=== PATIENT | female | born 1945 | race Caucasian/White ===

== ENCOUNTER → 2018-01-28 | Outpatient (CLI) | payer MEDICARE | LOC: LAB 16:42 | PROVIDERS: ATTEND Nurse Practitioner | DX: S41.102A Unspecified open wound of left upper arm, initial encounter (principal) | CPT/HCPCS: 87070; 87075; 87205 ==

== ENCOUNTER → 2018-11-30 | Outpatient (CLI) | payer MEDICARE, OTHER ==
--- NOTE | 2018-12-01 12:28 | Diagnostic Imaging Report ---
INDICATION: Routine screening. No prior mammograms are available for comparison. 2-D and 3-D bilateral screening mammography was performed with a Computer Aided Detection (CAD) system. FINDINGS: Scattered fibroglandular densities are identified bilaterally. Benign parenchymal and vascular calcifications are noted bilaterally. No mass or malignant appearing microcalcifications are seen. Axillae are unremarkable. IMPRESSION: No mammographic features suspicious for malignancy are identified. ACR BI-RADS Category 2: Benign findings. Result letter will be mailed to the patient. Note: At least 10% of breast cancer is not imaged by mammography. Dictated by: Dictated on workstation # [id number]
== END ==
LOC: RAD 14:46
PROVIDERS: ATTEND Physician Assistant
DX: Z12.31 Encounter for screening mammogram for malignant neoplasm of breast (principal)
CPT/HCPCS: 77067

== ENCOUNTER → 2021-11-29 | Outpatient (CLI) | payer MEDICARE, OTHER ==
--- NOTE | 2021-11-29 15:05 | Diagnostic Imaging Report ---
EXAMINATION: CT abdomen and pelvis without contrast. TECHNIQUE: Multiple contiguous axial images were obtained through the abdomen and pelvis without the use of intravenous contrast. All CT scans use one or more of the following dose optimizing techniques: Automated exposure control, MA and/or KvP adjustment based on patient size and exam type or iterative reconstruction. HISTORY: Abdominal pain, nausea and vomiting. COMPARISON: None available. FINDINGS: Limited views of the lower thorax show a 6 mm left lower lobe pulmonary nodule. Coronary arteries are severely calcified. The liver is normal without focal lesion. There is no biliary ductal dilation. Gallbladder is absent. Pancreas is normal. Spleen is normal. Adrenal glands are normal. Kidneys are atrophic. There are extensive vascular calcifications. There is no hydronephrosis. Bladder is decompressed and obscured by streak artifact. Small bowel is diffusely dilated. There is a relatively discrete transition in the mid ileum. No bowel wall thickening. No free fluid or air. No abdominal or pelvic lymphadenopathy. Aorta is normal in caliber without aneurysm. There are no suspicious osseous lesions. There has been a right hip arthroplasty and left femoral neck fixation. IMPRESSION: 1. Diffusely dilated small bowel with relatively discrete transition in the mid ileum. Findings favored to reflect a partial bowel obstruction. 2. Indeterminate left lower lobe pulmonary nodule measuring 6 mm. According to the Fleischner Society guidelines: In a low risk patient, no routine follow up is recommended. In a high risk patient, consider optional CT at 12 months. Dictated by: Dictated on workstation # [id number]
[2021-11-29 15:19] LABS: HEMATOCRIT 43 % (35-52); MEAN CORPUSCULAR HEMOGLOBIN 31 pg (25-34); MEAN CORPUSCULAR HGB CONC 33 g/dL (32-36); MEAN CORPUSCULAR VOLUME 95 fL (80-99); MEAN PLATELET VOLUME 9.5 fL (9.0-12.2); PLATELET COUNT 235 10^3/uL (130-400); WHITE BLOOD COUNT 13.8 10^3/uL (4.3-11.0)
[2021-11-29 15:33] LABS: ALBUMIN 4.1 GM/DL (3.2-4.5); BILIRUBIN,TOTAL 0.9 MG/DL (0.1-1.0); CALCIUM 9.2 MG/DL (8.5-10.1); CREATININE SERUM 6.12 MG/DL (0.60-1.30); POTASSIUM 4.3 MMOL/L (3.6-5.0); TOTAL PROTEIN 8.1 GM/DL (6.4-8.2)
== END ==
LOC: RAD 14:30
PROVIDERS: ATTEND Nurse Practitioner Family
DX: R91.1 Solitary pulmonary nodule (principal); R10.9 Unspecified abdominal pain; R11.2 Nausea with vomiting, unspecified
CPT/HCPCS: 36415; 74176; 80053; 85027

== ENCOUNTER → 2022-01-07 | Outpatient (CLI) | payer MEDICARE, OTHER ==
[2022-01-07 12:26] LABS: HEMATOCRIT 36 % (35-52); HEMOGLOBIN 11.2 g/dL (11.5-16.0); MEAN CORPUSCULAR HEMOGLOBIN 30 pg (25-34); MEAN CORPUSCULAR HGB CONC 32 g/dL (32-36); MEAN CORPUSCULAR VOLUME 94 fL (80-99); MEAN PLATELET VOLUME 9.6 fL (9.0-12.2); PLATELET COUNT 312 10^3/uL (130-400)
--- NOTE | 2022-01-07 12:38 | Diagnostic Imaging Report ---
PROCEDURE: CT abdomen and pelvis without contrast. TECHNIQUE: Multiple contiguous axial images were obtained through the abdomen and pelvis without the use of intravenous contrast. Auto Exposure Controls were utilized during the CT exam to meet ALARA standards for radiation dose reduction. INDICATION: Right-sided abdominal pain. Patient prior colon surgery in November 2021. Comparison is made with prior CT from 11/29/2021. FINDINGS: Patient has developed some infiltrate in both bases. There also appears to be some trace pleural fluid on the right. There is development of some ascites. There is some fluid in the perihepatic and perisplenic region. There is also some free fluid in the right gutter as well as the pelvis. No well-formed fluid collection or abscess is seen at this time. There are some postoperative changes in the right lower quadrant. There are some mildly prominent small and large bowel loops but no definite focal transition is seen. There is some diverticulosis of the descending and sigmoid colon but no definite evidence of acute diverticulitis. Small bowel does not appear to be appreciably dilated. The bladder appears decompressed. Uterus contains numerous calcifications. Liver, pancreas, spleen, and adrenal glands are unremarkable. The kidneys are atrophic. There is some marked renal and mesenteric vasculature calcifications noted. Bony structures demonstrate postoperative changes to bilateral hips. IMPRESSION: 1. Development of some minimal bibasilar infiltrates or atelectasis and small right effusion. 2. There is some upper abdominal ascites as well as pelvic ascites. No well-formed fluid collection or abscess is seen at this time. There is no free air. 3. Uncomplicated diverticulosis. Dictated by: Dictated on workstation # [id number]
[2022-01-07 12:52] LABS: ALBUMIN 3.6 GM/DL (3.2-4.5); BILIRUBIN,TOTAL 0.8 MG/DL (0.1-1.0); CALCIUM 9.3 MG/DL (8.5-10.1); CREATININE SERUM 2.57 MG/DL (0.60-1.30); TOTAL PROTEIN 6.8 GM/DL (6.4-8.2)
== END ==
LOC: RAD 11:55
PROVIDERS: ATTEND Nurse Practitioner Family
DX: K57.30 Diverticulosis of large intestine without perforation or abscess without bleeding (principal); R18.8 Other ascites
CPT/HCPCS: 36415; 74176; 80053; 85027

== ENCOUNTER → 2022-01-16 | Outpatient (CLI) | payer MEDICARE, OTHER ==
--- NOTE | 2022-01-16 11:39 | Diagnostic Imaging Report ---
Indication: Pneumonia. Time of Exam: 10:56 AM No prior studies are available for comparison. Heart size is normal. Lungs are clear. No infiltrates are seen. There is no effusion or pneumothorax. There are postop changes to the left humerus. IMPRESSION: No acute cardiopulmonary process is detected. Dictated by: Dictated on workstation # [id number]
== END ==
LOC: RAD 10:43
PROVIDERS: ATTEND Nurse Practitioner Family
DX: J18.9 Pneumonia, unspecified organism (principal)
CPT/HCPCS: 71046

== ENCOUNTER → 2022-02-26 | Outpatient (CLI) | payer MEDICARE, OTHER ==
--- NOTE | 2022-02-26 11:06 | Diagnostic Imaging Report ---
INDICATION: Abdominal distention, ascites. Abdominal sonography performed in a routine fashion. The liver shows a coarse echo pattern which may indicate chronic hepatocellular disease. There is no focal liver lesion detected. Gallbladder is surgically absent. Common duct is not well seen due to overlying gas. Pancreas is unremarkable to the extent seen. The spleen was not enlarged measuring 10.8 cm in greatest diameter. Visualized portions of the aorta and IVC are normal. The right kidney shows cortical thinning. The right kidney measured 10.2 x 4.2 x 5.4 cm and showed no hydronephrosis. Left kidney also shows cortical thinning, but no hydronephrosis or focal lesion. There is no ascites at this time. IMPRESSION: Limited study. No ascites or discrete focal lesion. The liver shows a coarse echo pattern which may indicate chronic hepatocellular disease, correlate with clinical findings. Dictated by: Dictated on workstation # [id number]
== END ==
LOC: RAD 08:30
PROVIDERS: ATTEND Internal Medicine Gastroenterology
DX: R18.8 Other ascites (principal)
CPT/HCPCS: 76700

== ENCOUNTER 2022-11-01 12:32 | Emergency (ER) | payer MEDICARE, OTHER ==
[~2022-11-01] VITALS: Ht 162.6 cm; Wt 71.9 kg
[2022-11-01 12:35] VITALS: BP 181/81
[2022-11-01 13:41] LABS: BASOPHILS % (AUTO) 0 % (0-10); EOSINOPHILS # (AUTO) 0.2 10^3/uL (0.0-0.3); EOSINOPHILS % (AUTO) 3 % (0-10); HEMATOCRIT 35 % (35-52); HEMOGLOBIN 10.7 g/dL (11.5-16.0); LYMPHOCYTES # (AUTO) 0.7 10^3/uL (1.0-4.0); LYMPHOCYTES % (AUTO) 11 % (12-44); MEAN CORPUSCULAR HEMOGLOBIN 29 pg (25-34); MEAN CORPUSCULAR HGB CONC 31 g/dL (32-36); MEAN CORPUSCULAR VOLUME 94 fL (80-99); MONOCYTES # (AUTO) 0.5 10^3/uL (0.0-1.0); MONOCYTES % (AUTO) 9 % (0-12); NEUTROPHILS # (AUTO) 4.4 10^3/uL (1.8-7.8); NEUTROPHILS % (AUTO) 77 % (42-75); PLATELET COUNT 166 10^3/uL (130-400); WHITE BLOOD COUNT 5.8 10^3/uL (4.3-11.0)
[2022-11-01 13:49] LABS: INR 1.2 (0.8-1.4)
[2022-11-01 13:51] LABS: ALBUMIN 3.7 GM/DL (3.2-4.5); POTASSIUM 2.6 MMOL/L (3.6-5.0)
[2022-11-01 13:54] LABS: TOTAL PROTEIN 7.7 GM/DL (6.4-8.2)
[2022-11-01 13:55] LABS: BILIRUBIN,TOTAL 0.8 MG/DL (0.1-1.0)
[2022-11-01 13:57] LABS: CREATININE SERUM 2.22 MG/DL (0.60-1.30)
[2022-11-01] MEDS ORDERED: RT-ALBUTEROL/IPRATROPIUM 3 ML (DUONEB) VIAL INH ONE ×2 (14:15→18:45)
--- NOTE | 2022-11-01 14:19 | Diagnostic Imaging Report ---
CHEST 1 VIEW, AP/PA ONLY INDICATION: Chest pain. COMPARISON: 11/01/2022. FINDINGS: Stable small bilateral pleural effusions, larger on the right. Bilateral perihilar pulmonary opacities are similar. Stable cardiomegaly. No pneumothorax. IMPRESSION: 1. No change in small bilateral pleural effusions with probable mild edema. Dictated by: Dictated on workstation # [id number]
[2022-11-01] MEDS ORDERED: POTASSIUM CL 10MEQ/50ML IVPB 50 ML IV ONE (14:30)
--- NOTE | 2022-11-01 15:34 | ED General ---
General Chief Complaint: Cardiac/General Problems Stated Complaint: HEART ISSUES Nursing Triage Note: PT TO ROOM 04 VIA W/C FROM PCP FOR ABNORMAL EKG. PCP THINKS EKG SHOWS A BLOCKAGE. PT DENIES CHEST PAIN. PT REPORTS CHEST PRESSURE AND SOB X2-3 WEEKS AND IS BEING TREATED FOR PNEUMONIA X3 DAYS. PT HAD A CXR TODAY TO CONFIRM PNEUMONIA DX. Source of Information: Patient Exam Limitations: No Limitations History of Present Illness Date Seen by Provider: Nov 01, 2022 Time Seen by Provider: 13:24 Initial Comments This is 77-year-old woman presents to the emergency room accompanied by family with concerns about shortness of breath and pneumonia for which she has been treated for 3 days with azithromycin. She is a dialysis patient and had dialysis this morning. After dialysis she stopped at the hospital lab at the direction of her primary care office to receive blood work and an EKG. There was concern about a slight elevation in troponin and EKG findings. Outpatient labs and EKG were reviewed. Troponin was 0.058. EKG demonstrated atrial fibrillation. There is significant artifact limiting interpretation. There was no acute ischemic change identified by this provider. When labs were reviewed by the primary care office, patient was diverted to the emergency room. She has noted a cough and coarse respiratory sounds. She is also wheezing on exam. She is afebrile at this time. Oxygen saturation has dipped as low as 88% while patient is asleep. She has oxygen saturations as high as 100% on 2 L nasal cannula. On room air she ranges from 88% to 96% depending on her activity and wakefulness. Patient's primary care office is Dr. Kaur where she sees Pooja ELMORE. She receives nephrology and cardiology services at [facility]. Her semiconductor wafers saw operator is Dr. Winn and her finnish rubber is Dr. Morales. She receives Orencia infusions for rheumatoid arthritis. Her dialysis is Friday, Friday and Friday Allergies and Home Medications Allergies Coded Allergies: povidone-iodine (Verified Allergy, Mild, Rash, 11/01/22) pseudoephedrine (Verified Allergy, Mild, Rash, 11/01/22) hydrocodone (Verified Adverse Reaction, Unknown, Vomiting, 11/01/22) Patient Home Medication List Home Medication List Reviewed: Yes Albuterol Sulfate (Albuterol Sulfate) 2.5 Mg/3 Ml (0.083 %) Vial.neb, 2.5 MG INH Q4H PRN for WHEEZING Prescribed by: KELY BURCIAGA on 11/01/221703 Cefdinir (Cefdinir) 300 Mg Capsule, 300 MG PO UD Prescribed by: KELY BURCIAGA on 11/01/221703 Prednisone (Prednisone) 20 Mg Tab, 20 MG PO DAILY Prescribed by: KELY BURCIAGA on 11/01/221703 Review of Systems Review of Systems Constitutional: no symptoms reported EENTM: no symptoms reported Respiratory: see HPI Cardiovascular: see HPI Gastrointestinal: no symptoms reported Past Okhhzdg-Ylwuip-Wqlhcg Hx Patient Social History Tobacco Use?: No Smoking Status: Never a Smoker Smokeless Tobacco Frequency: Never a User Use of E-Cig and/or Vaping dev: No Use of E-Cig and/or Vaping Da: Never a User Substance use?: No Alcohol Use?: No Pt feels they are or have been: No Past Medical History Surgeries: Yes Gallbladder, Orthopedic (Plate fixation of upper extremity), Thyroidectomy Respiratory: Yes Pneumonia Cardiac: Yes Atrial Fibrillation, Peripheral Vascular Neurological: No : No Genitourinary: Yes Renal Failure Gastrointestinal: No Musculoskeletal: Yes Rheumatoid Arthritis Endocrine: Yes Diabetes, Insulin dep HEENT: No Cancer: No Psychosocial: No Integumentary: No Physical Exam Vital Signs Vital Signs - First Documented 11/01/22 11/01/22 12:35 14:19 Temp 36.1 Pulse 105 Resp 17 B/P (MAP) 181/81 (114) Pulse Ox 95 O2 Delivery Room Air O2 Flow Rate 2.00 Capillary Refill : Less Than 3 Seconds Height, Weight, BMI Height: '" Weight: lbs. oz. kg; 27.00 BMI Method: General Appearance: No Apparent Distress, WD/WN HEENT: PERRL/EOMI, Normal ENT Inspection Neck: Normal Inspection; No JVD Respiratory: No Accessory Muscle Use, No Respiratory Distress, Crackles, Rhonci, Wheezing Cardiovascular: No Murmur, Irregularly Irregular Gastrointestinal: Non Tender, Soft Extremity: Normal Inspection, Non Tender, Swelling (Trace or mild lower extremity edema) Neurologic/Psychiatric: Alert, Oriented x3, No Motor/Sensory Deficits, Normal Mood/Affect Skin: Normal Color, Warm/Dry Focused Exam Lactate Level 11/01/22 14:27: Lactic Acid Level 0.90 Lactic Acid Level Laboratory Tests Test 11/01/22 14:27 Lactic Acid Level 0.90 MMOL/L (0.50-2.00) Progress/Results/Core Measures Suspected Sepsis SIRS Temperature: Pulse: 105 Respiratory Rate: 17 Laboratory Tests 11/01/22 12:56: White Blood Count 5.8 Blood Pressure 181 /81 Mean: 114 11/01/22 14:27: Lactic Acid Level 0.90 Laboratory Tests 11/01/22 12:56: Creatinine 2.22H, INR Comment 1.2, Platelet Count 166, Total Bilirubin 0.8 Results/Orders Lab Results Laboratory Tests Test 11/01/22 11:05 11/01/22 12:56 11/01/22 14:27 Range/Units Influenza Type A (RT-PCR) Not Detected Not Detecte Influenza Type B (RT-PCR) Not Detected Not Detecte White Blood Count 5.8 4.3-11.0 10^3/uL Red Blood Count 3.67 L 3.80-5.11 10^6/uL Hemoglobin 10.7 L 11.5-16.0 g/dL Hematocrit 35 35-52 % Mean Corpuscular Volume 94 80-99 fL Mean Corpuscular Hemoglobin 29 25-34 pg Mean Corpuscular Hemoglobin Concent 31 L 32-36 g/dL Red Cell Distribution Width 13.9 10.0-14.5 % Platelet Count 166 130-400 10^3/uL Mean Platelet Volume 10.0 9.0-12.2 fL Immature Granulocyte % (Auto) 0 % Neutrophils (%) (Auto) 77 H 42-75 % Lymphocytes (%) (Auto) 11 L 12-44 % Monocytes (%) (Auto) 9 0-12 % Eosinophils (%) (Auto) 3 0-10 % Basophils (%) (Auto) 0 0-10 % Neutrophils # (Auto) 4.4 1.8-7.8 10^3/uL Lymphocytes # (Auto) 0.7 L 1.0-4.0 10^3/uL Monocytes # (Auto) 0.5 0.0-1.0 10^3/uL Eosinophils # (Auto) 0.2 0.0-0.3 10^3/uL Basophils # (Auto) 0.0 0.0-0.1 10^3/uL Immature Granulocyte # (Auto) 0.0 0.0-0.1 10^3/uL Prothrombin Time 16.0 H 12.2-14.7 SEC INR Comment 1.2 0.8-1.4 Activated Partial Thromboplast Time 42 H 24-35 SEC Sodium Level 143 135-145 MMOL/L Potassium Level 2.6 L 3.6-5.0 MMOL/L Chloride Level 97 L 98-107 MMOL/L Carbon Dioxide Level 32 21-32 MMOL/L Anion Gap 14 5-14 MMOL/L Blood Urea Nitrogen 9 7-18 MG/DL Creatinine 2.22 H 0.60-1.30 MG/DL Estimat Glomerular Filtration Rate 22 BUN/Creatinine Ratio 4 Glucose Level 134 H 70-105 MG/DL Calcium Level 9.0 8.5-10.1 MG/DL Corrected Calcium 9.2 8.5-10.1 MG/DL Magnesium Level 2.0 1.6-2.4 MG/DL Total Bilirubin 0.8 0.1-1.0 MG/DL Aspartate Amino Transf (AST/SGOT) 26 5-34 U/L Alanine Aminotransferase (ALT/SGPT) 16 0-55 U/L Alkaline Phosphatase 62 40-136 U/L Myoglobin 399.7 H 10.0-92.0 NG/ML Troponin I 0.044 H <0.028 NG/ML C-Reactive Protein High Sensitivity 4.79 H 0.00-0.50 MG/DL Total Protein 7.7 6.4-8.2 GM/DL Albumin 3.7 3.2-4.5 GM/DL Lactic Acid Level 0.90 0.50-2.00 MMOL/L Micro Results Microbiology 11/01/22 Blood Culture - Preliminary, Resulted No growth 11/01/22 Blood Culture - Preliminary, Resulted No growth My Orders Orders - KELY KENT MD Cbc With Automated Diff (11/01/22 13:24) Magnesium (11/01/22 13:24) Chest 1 View, Ap/Pa Only (11/01/22 13:24) Ekg Tracing (11/01/22 13:24) Comprehensive Metabolic Panel (11/01/22 13:24) Myoglobin Serum (11/01/22 13:24) Protime With Inr (11/01/22 13:24) Partial Thromboplastin Time (11/01/22 13:24) O2 (11/01/22 13:24) Monitor-Rhythm Ecg Trace Only (11/01/22 13:24) Ed Iv/Invasive Line Start (11/01/22 13:24) Troponin I [place] (11/01/22 13:24) Albuterol/Ipra Inhalation Soln (Duoneb I (11/01/22 14:15) Svn Small Volume Nebulizer (11/01/22 14:13) Potassium Cl 10meq/50ml Ivpb (Kcl 10 Meq (11/01/22 14:30) Hs C Reactive Protein (11/01/22 14:19) Blood Culture (11/01/22 14:19) Sputum Culture (11/01/22 14:19) Vital Signs Adult Sepsis Patie Q15M (11/01/22 14:19) Remove Rings In Anticipation O (11/01/22 14:19) Lactic Acid Analyzer (11/01/22 14:19) Influenza A And B By Pcr (11/01/22 15:05) Methylprednisolone Sod Succ (Solu-Medrol (11/01/22 15:45) Ceftriaxone 1 Gm Pre-Mix (Rocephin 1 Gm (11/01/22 15:57) Albuterol Inhaler (Albuterol) (11/01/22 17:01) Albuterol/Ipra Inhalation Soln (Duoneb I (11/01/22 18:45) Svn Small Volume Nebulizer (11/01/22 18:41) Medications Given in ED Vital Signs/I&O 11/01/22 11/01/22 11/01/22 12:35 12:35 14:19 Temp 36.1 Pulse 105 Resp 17 B/P (MAP) 181/81 (114) Pulse Ox 95 100 O2 Delivery Room Air Room Air Nasal Cannula O2 Flow Rate 2.00 Capillary Refill : Less Than 3 Seconds Blood Pressure Mean: 114 Progress Note #1: Progress Note Patient was seen and examined. Labs, EKG, and x-ray from outpatient visit were reviewed. They were repeated. Patient was noted to have significantly low potassium at 2.6. She was given 10 mEq by IV route. On x-ray she appears to have bilateral pleural effusions and some edema. Given her symptoms, she likely has some concurrent pneumonia and infiltrate. Oxygen saturations have been marginal. She has dipped as low as 88% at rest while asleep with good waveform. She has been on nasal cannula 2 L/min much of her stay. We will try to qualify her for home oxygen with RT testing. In the meantime she is receiving Rocephin for additional antibiotic therapy. DuoNeb treatment helped her with wheezing and improve her oxygen saturation. She will receive an inhaler to use at home. We will continue antibiotic therapy as well with a cefdinir prescription. Steroid therapy is also being initiated with Solu-Medrol in the ER and will be followed by prednisone at home. I discussed the situation with Dr. Khoury, semiconductor wafers saw operator on-call for Dr. Winn. She recommended not adding any more potassium supplementation as she is still in the timeframe of balancing the potassium between tissue and intravascular fluids. Repeat troponin was trending down at 0.44. Given no chest pain for a few days and a minimal troponin value that is trending downward in a dialysis patient, there is not appear to be clinical relevance to the troponin value. In discussion with Dr. Ventura, we determined it is reasonable to avoid hospital admission at this time and provide further care for pneumonia and hypoxia. We will attempt to get oxygen supplies at home. I can dispense a nebulizer machine for her as well. Progress Note #2: Time: 19:09 Progress Note After multiple attempts with multiple medical supply companies, I was not able to procure any oxygen for home delivery. Patient did have a recurrence of desaturation as low as 87% on room air with good waveform. However, patient did resuscitate her oxygen after nebulizer treatment. Oxygen saturations were in the mid to high 90s after the DuoNeb. She was reporting subjective improvement. Return precautions were given to the patient and her daughter. She was advised to return to the emergency room and possibly [facility] in [place] if she can safely do so if return to the hospital was necessary. ECG Initial ECG Impression Date: Nov 01, 2022 Initial ECG Impression Time: 12:43 Initial ECG Rate: 105 Initial ECG Rhythm: A Fib/Flutter Initial ECG Impression: Atrial Fibrillation Comment Atrial fibrillation with no acute ischemic ST changes. Probable LVH with secondary repolarization abnormality. No other abnormal intervals. Diagnostic Imaging Diagonstic Imaging: Xray Plain Films/CT/US/NM/MRI: chest Comments Chest x-ray viewed by me and report reviewed. See report below: NAME: [facility] REC#: [id number] PT STATUS: REG ER : 1945 PHYSICIAN: KELY KENT MD ADMIT DATE: 11/01/22/ER Signed Date of Exam:11/01/22 CHEST 1 VIEW, AP/PA ONLY CHEST 1 VIEW, AP/PA ONLY INDICATION: Chest pain. COMPARISON: 11/01/2022. FINDINGS: Stable small bilateral pleural effusions, larger on the right. Bilateral perihilar pulmonary opacities are similar. Stable cardiomegaly. No pneumothorax. IMPRESSION: 1. No change in small bilateral pleural effusions with probable mild edema. Dictated by: Dictated on workstation # [id number] Dict: 11/01/22 1412 Trans: 11/01/22 1612 [id number] Interpreted by: JASEN TA MD Electronically signed by: JASEN TA MD 11/01/22 1612 Departure Impression Primary Impression: Pneumonia Qualified Codes: J18.9 - Pneumonia, unspecified organism Additional Impressions: Hypoxia Pleural effusion Wheezing End stage renal failure on dialysis Atrial fibrillation Qualified Codes: I48.91 - Unspecified atrial fibrillation Disposition: 01 HOME, SELF-CARE Condition: Improved Departure-Patient Inst. Decision time for Depature: 17:02 Referrals: ANGELLA KAUR MD (PCP/Family) Primary Care Physician Patient Instructions: Pneumonia, Adult ED Add. Discharge Instructions: Complete azithromycin as previously prescribed. Add cefdinir 1 capsule after dialysis. This will continue the antibiotic initiated in your IV during her ER visit. Take your prednisone daily for the next 4 days to improve wheezing. Take early in the day to avoid sleep disturbance. Take with food or milk to avoid stomach upset. Monitor blood sugars closely while on prednisone. Use your insulin as previously directed if you have escalating blood sugars. If blood sugars become too high, stop prednisone and discuss further with your doctor on Friday. Monitor oxygen saturations. If you are having frequent or persistent desaturations below 92% consider returning to the ER. Follow-up with your finnish rubber as soon as possible. Return to the ER if your chest pain returns. Use your nebulizer machine every 4 hours as needed for wheezing or shortness of breath. You may alternatively use your inhaler up to 4 puffs in a 4-hour period of time. If you are requiring more frequent inhaled treatments than this, return to the ER. All discharge instructions reviewed with patient and/or family. Voiced understanding. Scripts Albuterol Sulfate (Albuterol Sulfate) 2.5 Mg/3 Ml (0.083 %) Vial.neb 2.5 MG INH Q4H PRN for WHEEZING, #50 EA 1 Refill Prov: KELY KENT MD 11/01/22 Prednisone (Prednisone) 20 Mg Tab 20 MG PO DAILY, #4 TAB 0 Refills Prov: KELY KENT MD 11/01/22 Cefdinir (Cefdinir) 300 Mg Capsule 300 MG PO UD, #3 CAP Friday, Friday and Friday after dialysis. Prov: KELY KENT MD 11/01/22 Copy Copies To 1: ANGELLA KAUR MD, JOSHUA T MD Nov 01, 2022 15:33
[2022-11-01] MEDS ORDERED: methylPREDNISolone 125 MG (Solu-MEDROL) VIAL IVP ONE (15:45)
[2022-11-01] MEDS ORDERED: cefTRIAXone 1 GM PRE-MIX 50 ML IV STA (15:57)
[2022-11-01] MEDS ORDERED: RT-ALBUTEROL HFA 8.5 GM INHALER IH STA (17:01)
[2022-11-01] MEDS ORDERED: PRD20T PO (17:04)
[2022-11-01] MEDS ORDERED: ALBU2.5V4 INH (17:04)
[2022-11-01] MEDS ORDERED: CEFD300C3 PO (17:04)
== END 2022-11-01 19:15 | disposition home or self-care (01) ==
LOC: EDUNIT# 12:32 → ER 12:34
DX: J18.9 Pneumonia, unspecified organism (principal); J90 Pleural effusion, not elsewhere classified; I48.91 Unspecified atrial fibrillation; E11.22 Type 2 diabetes mellitus with diabetic chronic kidney disease; N18.6 End stage renal disease; R09.02 Hypoxemia; E87.6 Hypokalemia; R60.0 Localized edema; Z99.2 Dependence on renal dialysis
CPT/HCPCS: 36415; 71045; 80053; 83605; 83735; 83874; 84484; 85025; 85610; 85730; 86141; 87040; 93005; 93041; 94640

== ENCOUNTER → 2022-11-01 | Outpatient (CLI) | payer MEDICARE, OTHER ==
[~2022-11-01] MED LIST: ALBU2.5V4 INH; CEFD300C3 PO; PRD20T PO
[2022-11-01 11:30] LABS: BASOPHILS % (AUTO) 0 % (0-10); EOSINOPHILS # (AUTO) 0.2 10^3/uL (0.0-0.3); EOSINOPHILS % (AUTO) 3 % (0-10); HEMATOCRIT 31 % (35-52); HEMOGLOBIN 9.6 g/dL (11.5-16.0); LYMPHOCYTES # (AUTO) 0.7 10^3/uL (1.0-4.0); LYMPHOCYTES % (AUTO) 12 % (12-44); MEAN CORPUSCULAR HEMOGLOBIN 30 pg (25-34); MEAN CORPUSCULAR HGB CONC 31 g/dL (32-36); MEAN CORPUSCULAR VOLUME 95 fL (80-99); MEAN PLATELET VOLUME 9.8 fL (9.0-12.2); MONOCYTES # (AUTO) 0.6 10^3/uL (0.0-1.0); MONOCYTES % (AUTO) 10 % (0-12); NEUTROPHILS # (AUTO) 4.5 10^3/uL (1.8-7.8); NEUTROPHILS % (AUTO) 74 % (42-75); PLATELET COUNT 158 10^3/uL (130-400)
[2022-11-01 11:55] LABS: ALBUMIN 3.4 GM/DL (3.2-4.5); BILIRUBIN,TOTAL 0.8 MG/DL (0.1-1.0); CREATININE SERUM 1.98 MG/DL (0.60-1.30); POTASSIUM 2.6 MMOL/L (3.6-5.0); TOTAL PROTEIN 7.2 GM/DL (6.4-8.2)
[2022-11-01 12:02] LABS: EOSINOPHILS % (MANUAL) 1 %; LYMPHOCYTES % (MANUAL) 8 %; MONOCYTES % (MANUAL) 5 %; NEUTROPHILS % (MANUAL) 82 %
[2022-11-01 12:03] LABS: REACTIVE LYMPHOCYTES 4 %
[2022-11-01 12:08] LABS: RBC MORPH NORMAL
--- NOTE | 2022-11-01 15:28 | Diagnostic Imaging Report ---
INDICATION: Dyspnea and wheezing. EXAMINATION: PA and lateral views of the chest were obtained at 11:39 a.m. COMPARISON: 01/16/2022. FINDINGS: There is cardiomegaly. There is central vascular congestion which is increased compared to the prior study with some mild edema. There is new bibasilar infiltrates, right greater than left, with small bilateral pleural effusions. IMPRESSION: New bibasilar infiltrates, right greater than left, which may represent pneumonia. There is central vascular congestion with mild interstitial edema. There are small bilateral pleural effusions, right greater than left. Dictated by: Dictated on workstation # [id number]
== END ==
LOC: CARD 10:56
PROVIDERS: ATTEND Nurse Practitioner Family
DX: J90 Pleural effusion, not elsewhere classified (principal); I87.8 Other specified disorders of veins; J81.1 Chronic pulmonary edema
CPT/HCPCS: 36415; 71046; 80053; 84484; 85007; 85027; 87636

== ENCOUNTER → 2022-11-04 | Outpatient (CLI) | payer MEDICARE, OTHER ==
[2022-11-04 12:48] LABS: HEMATOCRIT 33 % (35-52); HEMOGLOBIN 10.4 g/dL (11.5-16.0); MEAN CORPUSCULAR HEMOGLOBIN 30 pg (25-34); MEAN CORPUSCULAR HGB CONC 32 g/dL (32-36); MEAN CORPUSCULAR VOLUME 94 fL (80-99); MEAN PLATELET VOLUME 9.9 fL (9.0-12.2); PLATELET COUNT 188 10^3/uL (130-400); WHITE BLOOD COUNT 10.3 10^3/uL (4.3-11.0)
[2022-11-04 13:04] LABS: ALBUMIN 3.6 GM/DL (3.2-4.5)
[2022-11-04 13:05] LABS: POTASSIUM 2.7 MMOL/L (3.6-5.0)
[2022-11-04 13:06] LABS: CALCIUM 8.7 MG/DL (8.5-10.1)
[2022-11-04 13:07] LABS: TOTAL PROTEIN 7.1 GM/DL (6.4-8.2)
[2022-11-04 13:09] LABS: BILIRUBIN,TOTAL 0.6 MG/DL (0.1-1.0)
[2022-11-04 13:11] LABS: CREATININE SERUM 2.68 MG/DL (0.60-1.30)
--- NOTE | 2022-11-04 13:52 | Diagnostic Imaging Report ---
EXAMINATION: Chest radiograph TECHNIQUE: AP and lateral views of the chest obtained HISTORY: DYSPENA, PNEUMONIA COMPARISON: Chest radiograph 11/01/2022. FINDINGS: Increased airspace opacities in the left lower lobe. Similar airspace opacities within the right lower lobe. Similar pulmonary vascular congestion. Increased left pleural effusion. Right pleural effusion is stable.. Similar cardiomegaly. Left humerus fixation hardware partially imaged. IMPRESSION: Increased left basilar airspace opacities with similar appearing airspace opacities in the right lung base. Similar cardiomegaly with pulmonary vascular congestion. Increased left pleural effusion with stable right pleural effusion. Dictated by: Dictated on workstation # [id number]
== END ==
LOC: RAD 12:21
PROVIDERS: ATTEND Nurse Practitioner Family
DX: J18.9 Pneumonia, unspecified organism (principal); I51.7 Cardiomegaly; J90 Pleural effusion, not elsewhere classified; I87.8 Other specified disorders of veins
CPT/HCPCS: 36415; 71046; 80053; 85027

== ENCOUNTER → 2022-11-14 | Outpatient (CLI) | payer MEDICARE, OTHER ==
--- NOTE | 2022-11-14 15:55 | Diagnostic Imaging Report ---
INDICATION: Pleural effusion. EXAMINATION: PA and lateral chest. FINDINGS: There is a tiny right pleural effusion. Lungs are clear. IMPRESSION: Tiny right pleural effusion. Dictated by: Dictated on workstation # [id number]
== END ==
LOC: RAD 15:25
PROVIDERS: ATTEND Nurse Practitioner Family
DX: J90 Pleural effusion, not elsewhere classified (principal)
CPT/HCPCS: 71046

== ENCOUNTER 2022-12-22 12:01 | Emergency (ER) | payer MEDICARE, OTHER ==
[~2022-12-22] VITALS: Ht 162 cm; Wt 67.0 kg
--- NOTE | 2022-12-22 12:17 | ED Abdominal Pain ---
General Chief Complaint: Abdominal/GI Problems Stated Complaint: DARK STOOLS Source of Information: Patient, Family Exam Limitations: No Limitations History of Present Illness Date Seen by Provider: Dec 22, 2022 Time Seen by Provider: 12:15 Initial Comments Patient is a 77-year-old female with a history of A-fib, chronic kidney disease requiring dialysis Friday, Friday, Friday who presents ED for dark tarry stools. Started having dark tarry stool on Friday. She reports at least 3 episodes yesterday and 2 episodes today that looked dark. She states she did have some yellowish stool while returning from [place]. She states she feels nauseous without any vomiting. She is on Eliquis. She states she had lab work performed at dialysis on Friday and noted her hemoglobin level around 9. She believes they supplemented iron on Friday or Friday of dialysis. She states she has a history of a bowel obstruction 1 year ago required bowel resection. She does report some generalized abdominal discomfort but denies of any specific sharp stabbing pain. No urinary symptoms. Denies fever, chills, chest pain, shortness of breath, lower leg pain, headache, dizziness. Allergies and Home Medications Allergies Coded Allergies: povidone-iodine (Verified Allergy, Mild, Rash, 11/01/22) pseudoephedrine (Verified Allergy, Mild, Rash, 11/01/22) hydrocodone (Verified Adverse Reaction, Unknown, Vomiting, 11/01/22) Patient Home Medication List Home Medication List Reviewed: Yes Albuterol Sulfate (Albuterol Sulfate) 2.5 Mg/3 Ml (0.083 %) Vial.neb, 2.5 MG INH Q4H PRN for WHEEZING Prescribed by: KELY BURCIAGA on 11/01/221703 Cefdinir (Cefdinir) 300 Mg Capsule, 300 MG PO UD Prescribed by: KELY BURCIAGA on 11/01/221703 Prednisone (Prednisone) 20 Mg Tab, 20 MG PO DAILY Prescribed by: KELY BURCIAGA on 11/01/221703 Review of Systems Review of Systems Constitutional: No chills, No diaphoresis, No fever, No malaise, No weakness EENTM: No Blurred Vision, No Eye Pain, No Mouth Pain, No Mouth Swelling Respiratory: Denies Cough, Denies Orthopnea, Denies Shortness of Air Cardiovascular: Denies Chest Pain Gastrointestinal: Abdominal Pain; Denies Diarrhea, Denies Nausea; Rectal Bleeding; Denies Vomiting Genitourinary: Denies Burning, Denies Discharge, Denies Drainage, Denies Frequency Musculoskeletal: No back pain, No joint pain Skin: No change in color, No change in hair/nails All Other Systems Reviewed Negative Unless Noted: Yes Past Zzpoums-Tuoytx-Nmzxsb Hx Past Medical History Surgeries: Yes Gallbladder, Orthopedic, Thyroidectomy Respiratory: Yes Pneumonia Cardiac: Yes Atrial Fibrillation, Peripheral Vascular Neurological: No Genitourinary: Yes Renal Failure Gastrointestinal: No Musculoskeletal: Yes Rheumatoid Arthritis Endocrine: Yes Diabetes, Insulin dep HEENT: No Cancer: No Psychosocial: No Integumentary: No Physical Exam Vital Signs Vital Signs - First Documented 12/22/22 12:07 Temp 36.7 Pulse 85 Resp 18 B/P (MAP) 145/58 (87) Pulse Ox 99 O2 Delivery Room Air Capillary Refill : Height/Weight/BMI Height: '" Weight: lbs. oz. kg; 27.00 BMI Method: General Appearance: WD/WN, no apparent distress HEENT: PERRL/EOMI, normal ENT inspection, TMs normal, pharynx normal Neck: non-tender, full range of motion, supple, normal inspection Respiratory: chest non-tender, lungs clear, normal breath sounds, no respiratory distress, no accessory muscle use, respiratory distress Cardiovascular: regular rate, rhythm, no edema, no gallop, no JVD, no murmur Gastrointestinal: normal bowel sounds, non tender, soft, no organomegaly, no pulsatile mass Extremities: normal range of motion, non-tender Back: normal inspection, no CVA tenderness, no vertebral tenderness Neurologic/Psychiatric: qm nurse II-XII nml as tested, no motor/sensory deficits, alert, normal mood/affect, oriented x 3 Skin: normal color, warm/dry Progress/Results/Core Measures Results/Orders Lab Results Laboratory Tests Test 12/22/22 12:19 Range/Units White Blood Count 7.8 4.3-11.0 10^3/uL Red Blood Count 3.01 L 3.80-5.11 10^6/uL Hemoglobin 9.2 L 11.5-16.0 g/dL Hematocrit 30 L 35-52 % Mean Corpuscular Volume 99 80-99 fL Mean Corpuscular Hemoglobin 31 25-34 pg Mean Corpuscular Hemoglobin Concent 31 L 32-36 g/dL Red Cell Distribution Width 14.5 10.0-14.5 % Platelet Count 154 130-400 10^3/uL Mean Platelet Volume 9.8 9.0-12.2 fL Immature Granulocyte % (Auto) 0 % Neutrophils (%) (Auto) 72 42-75 % Lymphocytes (%) (Auto) 18 12-44 % Monocytes (%) (Auto) 8 0-12 % Eosinophils (%) (Auto) 2 0-10 % Basophils (%) (Auto) 1 0-10 % Neutrophils # (Auto) 5.6 1.8-7.8 10^3/uL Lymphocytes # (Auto) 1.4 1.0-4.0 10^3/uL Monocytes # (Auto) 0.6 0.0-1.0 10^3/uL Eosinophils # (Auto) 0.1 0.0-0.3 10^3/uL Basophils # (Auto) 0.0 0.0-0.1 10^3/uL Immature Granulocyte # (Auto) 0.0 0.0-0.1 10^3/uL Prothrombin Time 15.7 H 12.2-14.7 SEC INR Comment 1.2 0.8-1.4 Activated Partial Thromboplast Time 37 H 24-35 SEC Sodium Level 142 135-145 MMOL/L Potassium Level 2.9 L 3.6-5.0 MMOL/L Chloride Level 100 98-107 MMOL/L Carbon Dioxide Level 30 21-32 MMOL/L Anion Gap 12 5-14 MMOL/L Blood Urea Nitrogen 48 H 7-18 MG/DL Creatinine 4.95 H 0.60-1.30 MG/DL Estimat Glomerular Filtration Rate 8 BUN/Creatinine Ratio 10 Glucose Level 127 H 70-105 MG/DL Glucometer 126 H 70-110 MG/DL Calcium Level 8.4 L 8.5-10.1 MG/DL Corrected Calcium 9.0 8.5-10.1 MG/DL Magnesium Level 2.2 1.6-2.4 MG/DL Total Bilirubin 0.5 0.1-1.0 MG/DL Aspartate Amino Transf (AST/SGOT) 19 5-34 U/L Alanine Aminotransferase (ALT/SGPT) 15 0-55 U/L Alkaline Phosphatase 80 40-136 U/L Total Protein 6.2 L 6.4-8.2 GM/DL Albumin 3.3 3.2-4.5 GM/DL Lipase 23 8-78 U/L My Orders Orders - SHERRON MONTENEGRO Cbc With Automated Diff (12/22/22 12:14) Comprehensive Metabolic Panel (12/22/22 12:14) Lipase (12/22/22 12:14) Ua Culture If Indicated (12/22/22 12:14) Partial Thromboplastin Time (12/22/22 12:14) Protime With Inr (12/22/22 12:14) Iv/Invasive Line Insertion .IV INSERT (12/22/22 12:14) Ct Abdomen/Pelvis Wo (12/22/22 12:14) Ekg Tracing (12/22/22 12:17) Magnesium (12/22/22 12:44) Potassium Cl 10meq/50ml Ivpb (Kcl 10 Meq (12/22/22 12:45) Potassium Chloride (Tablet) (K Dur Table (12/22/22 12:45) Ns Iv 500 Ml (Sodium Chloride 0.9%) (12/22/22 13:16) Medications Given in ED Current Medications Medications Dose Ordered Sig/Ana Route Start Time Stop Time Status Last Admin Dose Admin Potassium Chloride 20 meq ONCE ONCE PO 12/22/22 12:45 12/22/22 12:56 DC 12/22/22 13:00 20 MEQ Potassium Chloride 50 ml @ 50 mls/hr ONCE ONCE IV 12/22/22 12:45 12/22/22 13:44 DC 12/22/22 13:00 50 MLS/HR Vital Signs/I&O 12/22/22 12/22/22 12:07 14:11 Temp 36.7 Pulse 85 80 Resp 18 18 B/P (MAP) 145/58 (87) 121/50 Pulse Ox 99 95 O2 Delivery Room Air Room Air Comment Atrial fibrillation, 70 bpm, QRS duration 91 MS, QTc 437 MS Departure Communication (PCP) Reviewed previous ER visits, H&P, lab testing. History of CK with dialysis Friday and Friday. Process Developer Missael Rodriguez. Patient was concern for dark tarry stool since Friday. 5 episodes of loose stools. Generalized abdominal discomfort but no specific pain. Patient is on Eliquis history of A-fib. Denies chest pain, shortness of breath, hematemesis, headache, dizziness. On arrival patient in no acute distress. Due to current complaint, coags, CBC, CMP, Hemoccult test was ordered. Patient Hemoccult test was negative. She believes they gave her a iron infusion at dialysis on Friday. CBC showed normal white blood count, hemoglobin 9.2 chronically stable. Creatinine 4.95, GFR 8 chronically elevated slightly worse today. Blood sugar 126. Potassium of 2.9. Patient was given 10 mill equivalent of IV potassium and 20 mill equivalent oral potassium. EKG did not show any evidence of EKG changes. Atrial fibrillation. Coags slightly elevated PT, PTT. CT abdomen and pelvis shows small amount of perisplenic and pelvic ascites. Small bilateral pleural effusion. Otherwise unremarkable with chronic findings. Discussed shamir rankin with our general surgeon Dr. Lara due to unsure patient did receive iron. Stool does appear dark and tarry. Due to stable Hgb and otherwise chronic lab work, he recommends recheck of her hemoglobin tomorrow at dialysis. Unlikely false negative however being on iron supplements could be contributing to her dark stool. She is on Eliquis. She does have dialysis tomorrow. Recommend recheck of her potassium and her hemoglobin. If any acute changes recommend returning back to the ED for further evaluation. She denies of any specific abdominal pain. No evidence of surgical abdomen. patient family agrees with plan of action. Patient vital signs stable. Does not appear toxic. She had a bowel obstruction 1 year ago without evidence of obstruction today. Continue monitoring stool. Impression Primary Impression: Hypokalemia Disposition: HOME, SELF-CARE Condition: Stable Departure-Patient Inst. Decision time for Depature: 14:03 Referrals: ANGELLA AKUR MD (PCP/Family) Primary Care Physician Patient Instructions: Hypokalemia Add. Discharge Instructions: Follow-up tomorrow regarding your potassium which was 2.9 today. Hemoglobin 9.2 today. Recommend checking it to see if you are on iron supplements. If continued dark tarry stool recommend further evaluation with colonoscopy All discharge instructions reviewed with patient and/or family. Voiced understanding. SHERRON MONTENEGRO Dec 22, 2022 12:17
[2022-12-22 12:29] LABS: BASOPHILS % (AUTO) 1 % (0-10); EOSINOPHILS # (AUTO) 0.1 10^3/uL (0.0-0.3); EOSINOPHILS % (AUTO) 2 % (0-10); HEMATOCRIT 30 % (35-52); HEMOGLOBIN 9.2 g/dL (11.5-16.0); LYMPHOCYTES # (AUTO) 1.4 10^3/uL (1.0-4.0); LYMPHOCYTES % (AUTO) 18 % (12-44); MEAN CORPUSCULAR HEMOGLOBIN 31 pg (25-34); MEAN CORPUSCULAR HGB CONC 31 g/dL (32-36); MEAN CORPUSCULAR VOLUME 99 fL (80-99); MEAN PLATELET VOLUME 9.8 fL (9.0-12.2); MONOCYTES # (AUTO) 0.6 10^3/uL (0.0-1.0); MONOCYTES % (AUTO) 8 % (0-12); NEUTROPHILS # (AUTO) 5.6 10^3/uL (1.8-7.8); NEUTROPHILS % (AUTO) 72 % (42-75); PLATELET COUNT 154 10^3/uL (130-400); WHITE BLOOD COUNT 7.8 10^3/uL (4.3-11.0)
[2022-12-22 12:43] LABS: ALBUMIN 3.3 GM/DL (3.2-4.5); INR 1.2 (0.8-1.4); POTASSIUM 2.9 MMOL/L (3.6-5.0); PROTHROMBIN TIME PATIENT 15.7 SEC (12.2-14.7)
[2022-12-22 12:44] LABS: CALCIUM 8.4 MG/DL (8.5-10.1)
[2022-12-22 12:45] LABS: TOTAL PROTEIN 6.2 GM/DL (6.4-8.2)
[2022-12-22] MEDS ORDERED: POTASSIUM CL 10MEQ/50ML IVPB 50 ML IV ONE (12:45)
[2022-12-22] MEDS ORDERED: KCL 20 MEQ TAB (K-DUR) PO ONE (12:45)
[2022-12-22 12:47] LABS: BILIRUBIN,TOTAL 0.5 MG/DL (0.1-1.0)
[2022-12-22 12:49] LABS: CREATININE SERUM 4.95 MG/DL (0.60-1.30)
--- NOTE | 2022-12-22 13:03 | Diagnostic Imaging Report ---
PROCEDURE: CT abdomen and pelvis without contrast. TECHNIQUE: Multiple contiguous axial images were obtained through the abdomen and pelvis without the use of intravenous contrast. Auto Exposure Controls were utilized during the CT exam to meet ALARA standards for radiation dose reduction. INDICATION: Lower abdominal pain. FINDINGS: There are small bilateral pleural effusions, right greater than left. There is extensive coronary artery calcification. The liver is normal in size without focal lesions. There is no biliary duct dilatation. There is a small amount of perisplenic free fluid. Pancreas and adrenal glands are unremarkable. There is atrophy of the kidneys. There is extensive atherosclerotic calcification of the abdominal vessels. The bowel gas pattern is nonspecific. There is a small amount of free pelvic fluid. No pelvic mass or adenopathy. There are postsurgical changes in both hips. There are degenerative changes in the spine. IMPRESSION: Small amount of perisplenic and pelvic ascites. Small bilateral pleural effusions. Extensive vascular calcifications. Mild degenerative changes in the spine. Dictated by: Dictated on workstation # [id number]
[2022-12-22] MEDS ORDERED: NS IV 500 ML 500 ML IV STA (13:16)
[2022-12-22 14:11] VITALS: BP 121/50
== END 2022-12-22 14:11 | disposition home or self-care (01) ==
LOC: EDUNIT# 12:01 → ER 12:03
DX: E87.6 Hypokalemia (principal); I48.91 Unspecified atrial fibrillation; J90 Pleural effusion, not elsewhere classified; R18.8 Other ascites; E11.22 Type 2 diabetes mellitus with diabetic chronic kidney disease; N18.9 Chronic kidney disease, unspecified; Z79.01 Long term (current) use of anticoagulants; Z99.2 Dependence on renal dialysis
CPT/HCPCS: 36415; 74176; 80053; 82274; 82947; 83690; 83735; 85025; 85610; 85730; 93005

== ENCOUNTER 2022-12-25 10:16 | Emergency (ER) | payer MEDICARE, OTHER ==
[~2022-12-25] VITALS: Ht 165 cm; Wt 55.0 kg
--- NOTE | 2022-12-25 10:53 | ED General ---
General Chief Complaint: General Problems/Pain Stated Complaint: LOW BLOOD PRESSURE | BLACK STOOLS | WEAK Nursing Triage Note: PT STATED BLACK STOOLS, LOW BLOOD PRESSURE (90/40 AT DIALYSIS CENTER). Source of Information: Patient Exam Limitations: No Limitations History of Present Illness Date Seen by Provider: Dec 25, 2022 Time Seen by Provider: 10:29 Initial Comments 77-year-old female presents emergency department today for generally feeling unwell. She was at the dialysis clinic and reported to be hypotensive in the 90s systolic. They noted her hemoglobin to be low as well, 8.2. She is on Eliquis and Plavix. She nearly completed dialysis today with only 30 minutes remaining prior to coming to the emergency department. She states she has had significant fatigue and this morning when she woke up was short of breath when she went to dialysis but this subsided. She endorses black stools for the last couple of days. Initially they were like "cow patties." She states today that they are formed but continue to be black. All other systems reviewed and negative except documented per HPI. Voice recognition software was used to help create this chart Allergies and Home Medications Allergies Coded Allergies: povidone-iodine (Verified Allergy, Mild, Rash, 11/01/22) pseudoephedrine (Verified Allergy, Mild, Rash, 11/01/22) hydrocodone (Verified Adverse Reaction, Unknown, Vomiting, 11/01/22) Patient Home Medication List Home Medication List Reviewed: Yes Albuterol Sulfate (Albuterol Sulfate) 2.5 Mg/3 Ml (0.083 %) Vial.neb, 2.5 MG INH Q4H PRN for WHEEZING Prescribed by: KELY BURCIAGA on 11/01/221703 Cefdinir (Cefdinir) 300 Mg Capsule, 300 MG PO UD Prescribed by: KELY BURCIAGA on 11/01/221703 Prednisone (Prednisone) 20 Mg Tab, 20 MG PO DAILY Prescribed by: KELY BURCIAGA on 11/01/221703 Review of Systems Review of Systems Constitutional: see HPI Past Datluem-Yvstcm-Mpiswl Hx Patient Social History Tobacco Use?: No Use of E-Cig and/or Vaping dev: No Substance use?: No Alcohol Use?: No Immunizations Up To Date First/Initial COVID19 Vaccinat: RECEIVED, UNK WHEN Second COVID19 Vaccination Nolan: RECEIVED, UNK WHEN Third COVID19 Vaccination Date: RECEIVED, UNK WHEN Past Medical History Surgery/Hospitalization HX: ESRD, ANEMIA, HYPERCALCEMIA, Surgeries: Yes Gallbladder, Orthopedic, Thyroidectomy Respiratory: Yes Pneumonia Cardiac: Yes Atrial Fibrillation, Peripheral Vascular Neurological: No Genitourinary: Yes Renal Failure Gastrointestinal: No Musculoskeletal: Yes Rheumatoid Arthritis Endocrine: Yes Diabetes, Insulin dep HEENT: No Cancer: No Psychosocial: No Integumentary: No Family Medical History Reviewed Nursing Family Hx No Pertinent Family Hx Physical Exam Vital Signs Vital Signs - First Documented 12/25/22 10:31 Temp 36.6 Pulse 77 Resp 20 B/P (MAP) 159/56 (90) Pulse Ox 77 Capillary Refill : Less Than 3 Seconds Height, Weight, BMI Height: '" Weight: lbs. oz. kg; 20.00 BMI Method: General Appearance: No Apparent Distress, WD/WN HEENT: Normal ENT Inspection, Pharynx Normal Neck: Normal Inspection, Non Tender, Supple Respiratory: Chest Non Tender, Lungs Clear, Normal Breath Sounds, No Accessory Muscle Use, No Respiratory Distress Cardiovascular: Regular Rate, Rhythm, No Murmur Gastrointestinal: Normal Bowel Sounds, No Organomegaly, No Pulsatile Mass, Non Tender, Soft Back: Normal Inspection, No Vertebral Tenderness Extremity: Normal Capillary Refill, Normal Inspection Neurologic/Psychiatric: Alert, Oriented x3, No Motor/Sensory Deficits, Normal Mood/Affect Skin: Normal Color, Warm/Dry Progress/Results/Core Measures Suspected Sepsis SIRS Temperature: Pulse: 77 Respiratory Rate: 20 Laboratory Tests 12/25/22 10:45: White Blood Count 11.3H Blood Pressure 159 /56 Mean: 90 Laboratory Tests 12/25/22 10:45: Platelet Count 208 Results/Orders Lab Results Laboratory Tests Test 12/25/22 10:45 Range/Units White Blood Count 11.3 H 4.3-11.0 10^3/uL Red Blood Count 2.64 L 3.80-5.11 10^6/uL Hemoglobin 8.1 L 11.5-16.0 g/dL Hematocrit 27 L 35-52 % Mean Corpuscular Volume 100 H 80-99 fL Mean Corpuscular Hemoglobin 31 25-34 pg Mean Corpuscular Hemoglobin Concent 31 L 32-36 g/dL Red Cell Distribution Width 15.0 H 10.0-14.5 % Platelet Count 208 130-400 10^3/uL Mean Platelet Volume 10.3 9.0-12.2 fL Immature Granulocyte % (Auto) 0 % Neutrophils (%) (Auto) 79 H 42-75 % Lymphocytes (%) (Auto) 14 12-44 % Monocytes (%) (Auto) 5 0-12 % Eosinophils (%) (Auto) 1 0-10 % Basophils (%) (Auto) 0 0-10 % Neutrophils # (Auto) 9.0 H 1.8-7.8 X 10^3 Lymphocytes # (Auto) 1.6 1.0-4.0 X 10^3 Monocytes # (Auto) 0.5 0.0-1.0 X 10^3 Eosinophils # (Auto) 0.2 0.0-0.3 10^3/uL Basophils # (Auto) 0.0 0.0-0.1 10^3/uL Immature Granulocyte # (Auto) 0.0 0.0-0.1 10^3/uL My Orders Orders - ALEXANDRA JONES DO Iv/Invasive Line Insertion .IV INSERT (12/25/22 10:33) Cbc With Automated Diff (12/25/22 10:33) Abo Rh Type (12/25/22 10:33) Vital Signs/I&O 12/25/22 12/25/22 12/25/22 10:31 15:18 16:58 Temp 36.6 36.6 Pulse 77 62 62 Resp 20 20 B/P (MAP) 159/56 (90) 128/39 (68) 128/39 Pulse Ox 77 100 100 Capillary Refill : Less Than 3 Seconds Blood Pressure Mean: 90 Departure Communication (Admissions) Patient's hemoglobin is negative however she does have significant anemia. Unclear the origin but she has dropped her hemoglobin about 1 point in a week or 2. She does describe some black stools and on exam she definitely has black stool in her brief. She is relatively symptomatic with her anemia, getting dizzy and fatigued. She does describe some intermittent episodes shortness of breath as well. Unfortunately since she is on dialysis we cannot keep her in our facility. With that I called [facility] which is where her meter record clerk practices. Unfortunately at capacity and cannot accept transfers. I spoke to [facility] in [place] who accepts the patient in transfer at this time. Impression Primary Impression: Anemia Qualified Codes: D64.9 - Anemia, unspecified Additional Impression: End stage renal disease on dialysis Disposition: XFER SHT-TRM HOSP Condition: Stable Departure-Patient Inst. Referrals: ANGELLA KAUR MD (PCP/Family) Primary Care Physician ALEXANDRA JONES DO Dec 25, 2022 10:53
[2022-12-25 10:56] LABS: BASOPHILS % (AUTO) 0 % (0-10); EOSINOPHILS # (AUTO) 0.2 10^3/uL (0.0-0.3); EOSINOPHILS % (AUTO) 1 % (0-10); HEMATOCRIT 27 % (35-52); HEMOGLOBIN 8.1 g/dL (11.5-16.0); LYMPHOCYTES # (AUTO) 1.6 X 10^3 (1.0-4.0); LYMPHOCYTES % (AUTO) 14 % (12-44); MEAN CORPUSCULAR HEMOGLOBIN 31 pg (25-34); MEAN CORPUSCULAR HGB CONC 31 g/dL (32-36); MEAN CORPUSCULAR VOLUME 100 fL (80-99); MEAN PLATELET VOLUME 10.3 fL (9.0-12.2); MONOCYTES # (AUTO) 0.5 X 10^3 (0.0-1.0); MONOCYTES % (AUTO) 5 % (0-12); NEUTROPHILS % (AUTO) 79 % (42-75); PLATELET COUNT 208 10^3/uL (130-400); WHITE BLOOD COUNT 11.3 10^3/uL (4.3-11.0)
[2022-12-25 16:58] VITALS: BP 128/39
== END 2022-12-25 17:00 | disposition other institution (70) ==
LOC: EDUNIT# 10:16 → ER 10:18
DX: E11.22 Type 2 diabetes mellitus with diabetic chronic kidney disease (principal); N18.6 End stage renal disease; D63.1 Anemia in chronic kidney disease; K92.1 Melena; Z99.2 Dependence on renal dialysis; Z79.4 Long term (current) use of insulin; Z79.02 Long term (current) use of antithrombotics/antiplatelets; Z79.01 Long term (current) use of anticoagulants
CPT/HCPCS: 36415; 82274; 85025; 86900; 86901

== ENCOUNTER → 2023-01-01 | Outpatient (CLI) | payer MEDICARE, OTHER ==
--- NOTE | 2023-01-01 16:21 | Diagnostic Imaging Report ---
Indication: Trauma to the left great toe and pain. Time of Exam: 11:34 AM 3 views of the left great toe were obtained. The alignment is normal. The proximal distal phalanx of the great toe appear to be intact. No fractures are seen. There are vascular calcifications present. Impression: No acute abnormality is detected. Dictated by: Dictated on workstation # [id number]
== END ==
LOC: RAD 11:08
PROVIDERS: ATTEND Internal Medicine
DX: S99.922A Unspecified injury of left foot, initial encounter (principal); X58.XXXA Exposure to other specified factors, initial encounter
CPT/HCPCS: 73660

== ENCOUNTER → 2023-01-31 | Outpatient (CLI) | payer MEDICARE, OTHER ==
--- NOTE | 2023-01-31 17:01 | Diagnostic Imaging Report ---
Indication: Pain in left big toe 3 views of left foot show no acute fracture or dislocation. There is calcific arteriosclerosis. There is generalized osteopenia. IMPRESSION: No acute abnormality seen in the left foot. Dictated by: Dictated on workstation # [id number]
== END ==
LOC: RAD 10:34
PROVIDERS: ATTEND Internal Medicine
DX: M79.672 Pain in left foot (principal); N63.20 Unspecified lump in the left breast, unspecified quadrant
CPT/HCPCS: 73630

== ENCOUNTER → 2023-02-12 | Outpatient (CLI) | payer MEDICARE, OTHER ==
--- NOTE | 2023-02-12 19:38 | Diagnostic Imaging Report ---
INDICATION: Palpable lump in left breast. FINDINGS: Sonographic interrogation of the upper inner left breast was performed at the area of palpable abnormality. No solid or cystic mass u identified. No sonographic and normality is detected. IMPRESSION: BI-RADS Category 1 No sonographic abnormalities identified. Continued continued close clinical and self breast exams recommended to confirm stability of the palpable abnormality. Dictated by: Dictated on workstation # [id number]
--- NOTE | 2023-02-12 19:58 | Diagnostic Imaging Report ---
INDICATION: Palpable lump in left breast. FINDINGS: Correlation is made with prior mammogram from 11/30/2018. EXAMINATION: 2D and 3D bilateral diagnostic mammography was performed with CAD. The current study was also evaluated with a Computer Aided Detection (CAD) system. FINDINGS: A marker was placed at the area of palpable abnormality in the inner left breast. There are scattered fibroglandular densities, bilaterally. Extensive vascular calcifications are noted in both breasts. No mass is identified. No malignant-appearing microcalcification is seen. Specifically, no abnormality is identified at the area of palpable abnormality in the left breast. IMPRESSION: No mammographic feature suspicious for malignancy is identified. Even so, directed sonographic interrogation of the area palpable abnormality in the left breast is recommended and will be performed today. ACR BI-RADS Category 0: Incomplete. (Needs additional imaging evaluation). Result letter will be mailed to the patient. Note: At least 10% of breast cancer is not imaged by mammography. Dictated by: Dictated on workstation # [id number]
== END ==
LOC: RAD 14:15
PROVIDERS: ATTEND Internal Medicine
DX: N63.20 Unspecified lump in the left breast, unspecified quadrant (principal); M79.675 Pain in left toe(s)
CPT/HCPCS: 76642; 77066; G0279; 77062

== ENCOUNTER → 2023-03-24 | Outpatient (CLI) | payer MEDICARE, OTHER ==
--- NOTE | 2023-03-24 15:35 | Diagnostic Imaging Report ---
INDICATION: Palpable lump in the left breast. TECHNIQUE: Sonographic interrogation of the area of lump in the left breast was performed. This corresponds to the approximately 10 o'clock location 2 to 3 cm from the nipple. FINDINGS: No sonographic abnormality is identified. No solid or cystic mass is detected. IMPRESSION: No sonographic abnormality is identified. Even so, a diagnostic left mammogram is recommended and will be performed today. ACR BI-RADS Category 0: Incomplete. (Needs additional imaging evaluation). Dictated by: Dictated on workstation # [id number]
--- NOTE | 2023-03-24 15:42 | Diagnostic Imaging Report ---
INDICATION: Palpable lump in the left breast. COMPARISON: Correlation is made with the ultrasound performed earlier today as well as prior left mammogram studies from 02/12/2023 and 11/30/2018. TECHNIQUE: Unilateral left 2D and 3D diagnostic mammography was performed with CAD. FINDINGS: Scattered fibroglandular densities in the left breast are noted. A marker was placed at the area of palpable abnormality in the medial left breast. No mass or malignant-appearing microcalcifications are seen. There are extensive vascular calcifications. The left axilla is unremarkable. IMPRESSION: No mammographic features suspicious for malignancy are identified. Negative imaging should not necessarily preclude biopsy or excisional removal of a clinically suspicious palpable abnormality. ACR BI-RADS Category 1: Negative. Result letter will be mailed to the patient. Note: At least 10% of breast cancer is not imaged by mammography. Dictated by: Dictated on workstation # [id number]
== END ==
LOC: RAD 14:04
PROVIDERS: ATTEND Internal Medicine
DX: N63.0 Unspecified lump in unspecified breast (principal)
CPT/HCPCS: 76642; 77065; G0279

== ENCOUNTER → 2023-06-30 | Outpatient (CLI) | payer MEDICARE, OTHER ==
--- NOTE | 2023-06-30 15:10 | Diagnostic Imaging Report ---
EXAMINATION: CT chest without contrast. TECHNIQUE: Multiple contiguous axial images were obtained through the chest without the use of intravenous contrast. All CT scans use one or more of the following dose optimizing techniques: Automated exposure control, MA and/or KvP adjustment based on patient size and exam type or iterative reconstruction. HISTORY: Primary Dx R06.02 Shortness of breath. COMPARISON: None available. FINDINGS: Thyroid: The thyroid gland is nonvisualized. Mediastinum: Heart size is normal without significant pericardial effusion. Calcifications of the aorta and coronary vessels. Thoracic aorta is normal in caliber. No suspicious lymphadenopathy. Lungs and airways: There are a few reticulonodular opacities within the right upper lobe. Additional punctate subcentimeter ground-glass nodules are present within the lungs. There is a more solid-appearing left lower lobe subpleural pulmonary nodule measuring up to 0.7 cm. No focal consolidation, pleural effusion, or pneumothorax. The airways are normal. Upper abdomen: The subphrenic structures are normal. Musculoskeletal: Degenerative changes of the spine without suspicious osseous lesion or compression fracture. IMPRESSION: 1. A few scattered reticulonodular and ground-glass opacities in the lungs, which could be seen with atypical infection. 2. A 0.7 cm solid left lower lobe pulmonary nodule. Consider follow-up CT of the chest in 6-12 months. Dictated by: Dictated on workstation # [id number]
== END ==
LOC: RAD 10:43
PROVIDERS: ATTEND Internal Medicine Critical Care Medicine
DX: R91.1 Solitary pulmonary nodule (principal)
CPT/HCPCS: 71250